=== PATIENT | female | born 1975 | race Caucasian/White ===

== ENCOUNTER 2017-04-10 12:24 | Emergency (ER) | payer OTHER ==
[2017-04-10 13:56] LABS: HEMOGLOBIN 15.8 gm/dl (12.3-15.3); RED BLOOD COUNT 5.37 M/UL (4.00-5.10); WHITE BLOOD COUNT 6.4 K/UL (4.5-11.0)
[2017-04-10 14:14] LABS: BUN/CREATININE RATIO 13 (0-10)
== END 2017-04-10 16:26 | disposition home or self-care (01) ==
LOC: ER1 12:24
PROVIDERS: Physician Assistant
DX: R10.11 Right upper quadrant pain (principal); R11.0 Nausea; G43.909 Migraine, unspecified, not intractable, without status migrainosus; F17.200 Nicotine dependence, unspecified, uncomplicated; Z88.6 Allergy status to analgesic agent; Z90.49 Acquired absence of other specified parts of digestive tract; Z79.899 Other long term (current) drug therapy
CPT/HCPCS: 36415; 80053; 81001; 82150; 83690; 85025; 96374; 96375; 99284; J2270; J2405; J7050; Q9962

== ENCOUNTER → 2017-04-19 | Outpatient (CLI) | payer OTHER | LOC: CT 08:00 | DX: R10.11 Right upper quadrant pain (principal); K63.89 Other specified diseases of intestine | CPT/HCPCS: J7050; Q9962 ==

== ENCOUNTER → 2021-07-09 | Outpatient (CLI) | payer OTHER ==
[~2021-07-09] MED LIST: CIPRO500 MG PO; COLACE100 MG PO; FLAGYL500 MG PO; IMITREX25 MG PO; NORCO 7.5-3251 EACH PO; TOPAMAX 25 MG T25 MG PO; VITAMIN B-121000 MCG PO; VITAMIN D-32000 UNI1 PO; VITAMIN D250000 UNIT PO
== END ==
LOC: MAMO 13:46
DX: Z12.31 Encounter for screening mammogram for malignant neoplasm of breast (principal)
CPT/HCPCS: 77063; 77067